=== PATIENT | male | born 1960 | race Caucasian/White ===

== ENCOUNTER 2017-03-28 10:47 | Emergency (ER) | payer BC ==
[~2017-03-28] VITALS: Ht 182.9 cm; Wt 75.9 kg
[~2017-03-28 10:47] MED LIST: CLEO300C2 PO; IBUP200C10 PO
--- NOTE | 2017-03-28 12:29 | REP ---
Chest two views HISTORY: Cough Comparison: None An increase in interstitial markings is present in the perihilar areas. The heart is normal in size. The pulmonary vasculature is normal in appearance. The bony structure is intact. IMPRESSION: Findings consistent with asthma or bronchitis. Signed by Jere Vang MD 03/28/2017 12:21 P
[2017-03-28] MEDS ORDERED: predniSONE 20 MG TAB PO ONE (14:45)
[2017-03-28] MEDS ORDERED: ALBUTEROL SULFATE 2.5 MG/0.5 ML INH NEB SOLN NEB ONE (14:45)
[2017-03-28] MEDS ORDERED: PRED20TA PO (15:52)
[2017-03-28] MEDS ORDERED: ALBU17IN INH (15:52)
[2017-03-28] MEDS ORDERED: ZITHTAB PO (15:52)
[2017-03-28 16:11] VITALS: BP 128/75
== END 2017-03-28 16:12 | disposition home or self-care (01) ==
LOC: M ED 10:47
DX: J40 Bronchitis, not specified as acute or chronic (principal); F17.210 Nicotine dependence, cigarettes, uncomplicated

== ENCOUNTER 2017-11-21 05:59 | Emergency (ER) | payer BC ==
[2017-11-21] MEDS: IPRATROPIUM 0.5MG/ALBUTEROL 2.5MG INH SOL UD 3ML (DUONEB)(J7620) NEB (06:28)
== END 2017-11-21 07:07 | disposition home or self-care (01) ==
LOC: M ED 05:59
DX: J44.0 Chronic obstructive pulmonary disease with (acute) lower respiratory infection (principal); F17.200 Nicotine dependence, unspecified, uncomplicated; Z87.01 Personal history of pneumonia (recurrent); Z86.718 Personal history of other venous thrombosis and embolism
CPT/HCPCS: 71046

== ENCOUNTER → 2019-08-31 | Outpatient (CLI) | payer BC ==
[~2019-08-31] MED LIST changes: +ALBU17IN INH; -IBUP200C10 PO; +IBUP200C25 PO; +PRED20TA PO; +PROAAER10 INH; +ZITHTAB PO
--- NOTE | 2019-08-31 19:16 | REP ---
PA and lateral chest: Comparison is 11/21/2017. The lung gant are clear. The cardiac size is normal. The hailey, mediastinum, and skeletal structures are unremarkable. Impression: Negative PA and lateral chest. There is no interval change. Electronically Signed by Mao Mccarthy MD 08/31/2019 07:07 P
== END ==
LOC: M WUC 11:08
PROVIDERS: ATTEND Physician Assistant
DX: J20.9 Acute bronchitis, unspecified (principal)

== ENCOUNTER 2020-10-23 13:16 | Emergency (ER) | payer BC, SELFPAY ==
[~2020-10-23] VITALS: Ht 180.3 cm; Wt 86.4 kg
[2020-10-23 15:35] VITALS: O2SAT 96
[2020-10-23] MEDS ORDERED: predniSONE 20 MG TAB PO ONE (15:50)
[2020-10-23 16:11] LABS: BASO # 0.1 10^3/uL (0.0-0.2); BASO % 1.1 % (0.0-1.0); EOS # 0.4 10^3/uL (0.0-0.5); HEMATOCRIT 47.7 % (42.0-52.0); HEMOGLOBIN 15.6 g/dl (13.5-17.5); LYMPH # 1.2 10^3/uL (1.5-5.0); LYMPH % 16.3 % (24.0-44.0); MEAN CORPUSCULAR HEMOGLOBIN 29.5 pg (27.0-33.0); MEAN CORPUSCULAR HGB CONC 32.7 g/dl (32.0-36.5); MEAN CORPUSCULAR VOLUME 90.3 fl (80.0-96.0); MONO % 13.2 % (2.0-8.0); NEUTROPHILS # 4.6 10^3/uL (1.5-8.5); NEUTROPHILS % 63.1 % (36.0-66.0); PLATELET COUNT, AUTOMATED 184 10^3/uL (150-450); RED BLOOD COUNT 5.28 10^6/uL (4.30-6.10); WHITE BLOOD COUNT 7.4 10^3/uL (4.0-10.0)
[2020-10-23 16:15] LABS: ALBUMIN 3.4 GM/DL (3.2-5.2); ALT/SGPT 28 U/L (12-78); BILIRUBIN,DIRECT 0.1 MG/DL (0.0-0.2); BILIRUBIN,TOTAL 0.4 MG/DL (0.2-1.0); BLOOD UREA NITROGEN 11 MG/DL (7-18); CALCIUM LEVEL 9.1 MG/DL (8.5-10.1); CARBON DIOXIDE LEVEL 31 MEQ/L (21-32); CHLORIDE LEVEL 110 MEQ/L (98-107); CK-MB VALUE MASS 2.1 NG/ML (<3.6); CPK CREATINE PHOSPHOKINASE 164 U/L (39-308); CREATININE FOR GFR 0.78 MG/DL (0.70-1.30); GLOMERULAR FILTRATION RATE > 60.0 (>56); GLUCOSE, FASTING 94 MG/DL (70-100); MB/CK RELATIVE INDEX 1.28 (< OR =4); POTASSIUM SERUM 4.7 MEQ/L (3.5-5.1); SODIUM LEVEL 144 MEQ/L (136-145); TOTAL PROTEIN 6.4 GM/DL (6.4-8.2); TROPONIN I < 0.02 NG/ML (< 0.10)
[2020-10-23] MEDS: COMBIVENT RESPIMAT 100-20MCG INHALER 4GM INH SCH ×2 (16:16→16:27)
--- NOTE | 2020-10-23 16:45 | REP ---
INDICATION: cough, sob COMPARISON: 08/31/2019 TECHNIQUE: Portable AP view of the chest FINDINGS: The mediastinum and cardiac silhouette are stable and within normal limits for portable technique. The lung gant are clear without acute consolidation, effusion, or pneumothorax. Skeletal structures are intact. IMPRESSION: No acute cardiopulmonary process appreciated. <Electronically signed by Bulmaro Bee > 10/23/20 2325
[2020-10-23] MEDS ORDERED: PROAAER10 INH (17:05)
[2020-10-23] MEDS ORDERED: AZIT-12 PO (17:05)
[2020-10-23] MEDS ORDERED: PRED20TA PO (17:05)
[2020-10-23 17:24] VITALS: BP 131/79
--- NOTE | 2020-10-23 19:49 | ECGEPIP ---
[facility] - ED Test Date: 2020-10-23 Pat Name: TAMI GALICIA Department: Room: - Gender: Male Key Account Coordinator: ISREAL : 1960 Requested By: [place] Allan PA-C Order Number: [id number] Reading MD: Cody Cheung Measurements Intervals [place] Rate: 69 P: 80 MA: 164 QRS: 93 QRSD: 148 T: 58 QT: 402 QTc: 430 Interpretive Statements Sinus rhythm with sinus arrhythmia with occasional premature ventricular complexes Right bundle branch block Nonspecific ST T wave changes No prior ECG for comparison Electronically Signed on 10-23-2020 19:49:26 EDT by Cody Cheung
== END 2020-10-23 17:28 | disposition home or self-care (01) ==
LOC: M ED 13:16
DX: J45.909 Unspecified asthma, uncomplicated (principal); J20.9 Acute bronchitis, unspecified; J44.1 Chronic obstructive pulmonary disease with (acute) exacerbation; J06.9 Acute upper respiratory infection, unspecified; B34.9 Viral infection, unspecified; Z11.52 Encounter for screening for COVID-19; I45.10 Unspecified right bundle-branch block; F17.200 Nicotine dependence, unspecified, uncomplicated
CPT/HCPCS: 36415; 71045; 80048; 80076; 82550; 82553; 84484; 85025; 93005; 94640; 99284; U0003